=== PATIENT | female | born 1955 | race Caucasian/White ===

== ENCOUNTER 2022-09-11 15:39 | Outpatient (CLI) | payer MEDICARE, OTHER | END 2022-09-11 15:40 | disposition home or self-care (01) | LOC: CSHMRI 15:39 | PROVIDERS: ATTEND Orthopaedic Surgery Hand Surgery | DX: S52.515A Nondisplaced fracture of left radial styloid process, initial encounter for closed fracture (principal); M67.834 Other specified disorders of tendon, left wrist; S66.912A Strain of unspecified muscle, fascia and tendon at wrist and hand level, left hand, initial encounter; M24.232 Disorder of ligament, left wrist ==